=== PATIENT | female | born 1990 | race Caucasian/White ===

== ENCOUNTER → 2021-04-09 10:49 | Outpatient (CLI) | payer OTHER, SELFPAY ==
--- NOTE | ~2021-04-09 | US_ITS ---
EXAMINATION: US OB <= 14 weeks fetus DATE: 04/09/2021 11:41 INDICATION: First trimester dating TECHNIQUE: Real-time pelvic transabdominal and transvaginal ultrasound was performed. COMPARISON: None. FINDINGS: The uterus measures 11.1 x 5.4 x 6 cm. There is an intrauterine gestational sac. A yolk sa c is identified. heart motion is identified measuring 165 beats per minute (bpm) by M-mode Dopp ler. The crown rump length measures 1.6 cm , which correlates with an estimated gestational age of 8 weeks and 0 day(s) (+/-) 5 day(s). The left ovary is not visualized however no left adnexal abnormality is seen. The right ovary measure s measures 6.6 x 8.4 x 6.3 cm. There is a 5.3 x 7.5 x 6 cm cyst of the right ovary. There is no free fluid in the pelvis. IMPRESSION: 1. Live intrauterine with an estimated gestational age of 8 weeks and 0 day(s) (+/-) 5 day( s) and an estimated delivery date of 11/29/2021. 2. Right adnexal cyst measuring up to 7.5 cm. Follow-up ultrasound in 6-12 weeks is recommended. Reviewed, dictated and finalized at location A. IMPRESSION: 1. Live intrauterine with an estimated gestational age of 8 weeks and 0 day(s) (+/-) 5 day(s) and an estimated delivery date of 11/29/2021. 2. Right adnexal cyst measuring up to 7.5 cm. Follow-up ultrasound in 6-12 week s is recommended.
== END ==
PROVIDERS: Visit Provider Obstetrics & Gynecology Gynecology
DX: Z34.91 Encounter for supervision of normal pregnancy, unspecified, first trimester (principal); Z3A.01 Less than 8 weeks gestation of pregnancy; N85.8 Other specified noninflammatory disorders of uterus
CPT/HCPCS: 76801

== ENCOUNTER → 2021-07-04 11:25 | Outpatient (CLI) | payer OTHER, SELFPAY ==
--- NOTE | ~2021-07-04 | US_ITS ---
EXAMINATION: US OB /maternal detail DATE: 07/04/2021 12:04 INDICATION: Right ovarian cyst. anatomy screening during second trimester TECHNIQUE: Multiple obstetric sonographic images performed. COMPARISON: 04/09/2021 FINDINGS: There is a single living fetus in vertex presentation. The placenta is anterior and not low-lying wi th caudal margin 3.6 cm from the internal cervical os. Amniotic fluid volume is subjectively normal. heart rate of 136 beats per minute. The following anatomy was identified as normal: Ventricles, choroid plexus, falx and cava septum pellucidum Cerebellum and cisterna magna Nuchal fold Upper lip Spine Heart Diaphragm Stomach Kidneys Bladder 3 vessel cord and cord insertion Bilateral upper and lower extremities including hands and feet The following biometric data were obtained: BPD: 5.1 cm -> 21 weeks 2 days Head circumference: 19.0 cm -> 21 weeks 2 days Abdominal circumference: 16.8 cm -> 21 weeks 6 days Femur length: 3.6 cm -> 21 weeks 2 days These measurements are concordant. Head circumference to abdominal circumference ratio: 1.13 (normal range 1.06-1.24). Estimated weight: 431 g (+/-) 65 g. or 15 oz. (+/-) 2 oz. IMPRESSION: 1. Single living fetus with vertex presentation with heart rate of 136 bpm. 2. Estimated weight is 97th percentile by Hadlock criteria when 11/19/2021 is used as the estima lluvia date of delivery (NAMAN) based upon earliest ultrasound performed at this institution on 04/01/2021. Please correlate with clinical information or earlier ultrasounds for most accurate NAMAN. 3. Normal survey. Reviewed, dictated and finalized at location A. IMPRESSION: 1. Single living fetus with vertex presentation with heart rate of 136 b pm. 2. Estimated weight is 97th percentile by Hadlock criteria when 11/19/2021 is used as the estimated date of delivery (NAMAN) based upon earliest ultrasound performed at this institution on 04/01/2021. Please correlate with clinical inf ormation or earlier ultrasounds for most accurate NAMAN. 3. Normal survey.
== END ==
PROVIDERS: Visit Provider Obstetrics & Gynecology Gynecology
DX: Z34.92 Encounter for supervision of normal pregnancy, unspecified, second trimester (principal); Z3A.21 21 weeks gestation of pregnancy
CPT/HCPCS: 76805

== ENCOUNTER 2021-10-03 06:32 | Observation (INO) | payer OTHER, SELFPAY ==
[2021-10-03] VITALS (20 sets, daily range): BP systolic 126–137; BP diastolic 73–78; PULSE 57–70; TEMP 36.9–37.3; O2SAT 97–100; BMI 34.2
--- NOTE | ~2021-10-03 | US_ITS ---
EXAMINATION: US renal BI, US_ABDRLQ_US DATE: 10/03/2021 08:55 INDICATION: Right lower quadrant abdominal pain radiating to the back. Right ovarian cyst. TECHNIQUE: Multiple ultrasound grayscale images of the kidneys were obtained. Additional ultrasound g rayscale and color Doppler images were obtained of the right lower quadrant. COMPARISON: None. FINDINGS: The right kidney measures 11.0 x 4.5 x 6.3 cm. The left kidney measures 9.8 x 5.4 x 6.2 cm. The kidne ys demonstrate normal echogenicity. Normal renal arterial resistive indices of 0.65-0.65 on the right and 0.61-0.62 on the left. There is no hydronephrosis in either kidney. No stones identified. The b ladder appears normal but is incompletely distended likely due to the presence of the adjacent gravid uterus. The majority of the right lower quadrant lateral to the gravid uterus is obscured by shadowing bowel gas. Neither the right ovary nor the appendix were able to be visualized. IMPRESSION: 1. Normal kidneys without hydronephrosis. 2. Neither the right ovary nor the appendix are able to be visualized due to primarily to large amoun t of shadowing bowel gas in the right lower quadrant. Reviewed, dictated and finalized at location A. SETTER IMPRESSION: 1. Normal kidneys without hydronephrosis. 2. Neither the right ovary nor the appendix are able to be visualized due to pr imarily to large amount of shadowing bowel gas in the right lower quadrant.
--- NOTE | 2021-10-03 07:06 | OBADM ---
This patient, Dang Eastman, admitted to the OB room OB Post 115 for observation. Patient/family oriented to hospital policies and general routines including ID bracelet, bed and alarms, visiting hours, pain management, procedures, bathroom and other care routines, personal items, smoking policy, room service/diet, and visiting hours. Patient/Family are encouraged to report perceived risks to care and to ask questions if they do not understand what they are told or what they should do.
[2021-10-03 07:54] LABS: Add Urine Microscopic? YES; Appearance Urine Clear (Clear); Bacteria Urine Trace /hpf; Bilirubin Urine Negative (Negative); Blood Urine Negative (Negative); Color Urine Yellow (Yellow); Glucose Urine UA Negative (Negative); Ketones Urine Trace mg/dL (Negative); Leukocyte Esterase Ur Negative LEU/UL (NEGATIVE); Mucus Urine Moderate /lpf; Nitrate Urine Negative (Negative); Protein Urine 1+ mg/dL (Negative); RBC Urine 0-2 /hpf (0-2); Specific Grav Ur 1.025 (1.001-1.035); Squamous Epithelial Cell Urine Many /hpf (Few); Urobilinogen Urine Negative mg/dL (<2.0)
[2021-10-03] MEDS: MEPERIDINE HCL INJ (*CRX) 50 MG/ML AMPUL IM (09:02)
[2021-10-03] MEDS: CYCLOBENZAPRINE HCL 10 MG TABLET PO ×2 (10:28→16:12)
--- NOTE | 2021-10-03 11:59 | P.PNOB_ITS ---
OB - Triage/Final Diagnosis Visit Information Date of evaluation: 10/03/21 Reason for evaluation: other (RLQ pain) Comments/Additional reasons for admission: I have assessed the risk for this patient, Dang Eastman, and determined that she would benefit from observation care. Patient with radiating RLQ pain near groin and around to back. UA ok, U/s ok. Demerol x 1 helped some. Flexeril helped and able to move better. Plan to try [place] and flexeril and position change/ ambulation. If works, will dc home. Evaluation Laboratory results: Laboratory Tests 10/03/21 06:56 Urine Color Yellow Urine Appearance Clear Urine pH 7.0 Ur Specific [place] 1.025 Urine Protein 1+ H Urine Glucose (UA) Negative Urine Ketones Trace Ur Blood (Man) Negative Urine Nitrate Negative Urine Bilirubin Negative Urine Urobilinogen Negative Ur Leukocyte Esterase Negative Urine RBC 0-2 Urine WBC 4-6 H Ur Squamous Epith Cells Many H Urine Bacteria Trace Urine Mucus Moderate H Vital signs: Vital Signs - 24 hr 10/03/21 06:56 10/03/21 07:00 10/03/21 07:01 Temperature 98.5 F Pulse Rate 60 Blood Pressure 137/78 Pulse Oximetry 100 100 10/03/21 07:06 10/03/21 07:11 10/03/21 07:16 Temperature Pulse Rate 60 Blood Pressure 134/76 Pulse Oximetry 100 100 100 10/03/21 07:21 10/03/21 07:26 10/03/21 07:31 Temperature Pulse Rate 60 Blood Pressure 134/75 Pulse Oximetry 100 100 100 10/03/21 07:36 10/03/21 07:41 10/03/21 07:46 Temperature Pulse Rate 58 L Blood Pressure 126/75 Pulse Oximetry 100 100 100 10/03/21 07:51 10/03/21 07:56 10/03/21 08:01 Temperature Pulse Rate 59 L Blood Pressure 130/75 Pulse Oximetry 100 99 100 10/03/21 08:06 10/03/21 08:11 10/03/21 08:16 Temperature Pulse Rate 58 L Blood Pressure 127/73 Pulse Oximetry 100 99 100
[2021-10-03] MEDS: HYDROcodone/acetaminophen (*CRX) 5-325 MG TABLET 1 TAB PO ×2 (12:03→15:43)
[2021-10-03 12:23] LABS: Hematocrit 28.3 % (37.0-47.0); Hemoglobin 8.8 g/dL (12.0-15.0); Mean Corpuscular HGB Conc 31.1 g/dl (32-36); Mean Corpuscular Hemoglobin 21.9 pg (26-34); Mean Corpuscular Volume 70.4 fl (80-100); Mean Platelet Volume 9.9 fl (7.4-10.4); Platelet Count Result 370 k/mm3 (150-375); Red Blood Count 4.02 M/mm3 (4.2-5.4); Red Cell Distribution Width 16.6 % (11.5-14.5); White Blood Count 10.1 K/mm3 (4.5-10.0)
--- NOTE | 2021-10-03 14:28 | PC.NURSE ---
1416- Patient still with complaint of pain 4-5/10 after norco administration. Orders for PT eval, increase norco to every 4 hours. Patient aware and agreeable to plan.
--- NOTE | 2021-10-03 16:25 | PC.NURSE ---
1616- PT has seen patient. Patient requesting to go home at this time. Scripts have been sent to pharmacy.
== END 2021-10-03 17:00 | disposition home or self-care (01) ==
PROVIDERS: Admitting Provider Obstetrics & Gynecology Gynecology; Visit Provider Obstetrics & Gynecology Gynecology
DX: O26.893 Other specified pregnancy related conditions, third trimester (principal); R10.31 Right lower quadrant pain; Z3A.31 31 weeks gestation of pregnancy
CPT/HCPCS: 36415; 76705; 76775; 81001; 85027; 87077; 87086; 87088; 96372; 97161; A9270; G0378; G0379; J2175

== ENCOUNTER 2021-10-08 11:39 | Inpatient (IN) | payer OTHER, SELFPAY ==
[2021-10-08] VITALS (38 sets, daily range): BP systolic 118–143; BP diastolic 67–91; PULSE 67–132; RESP 16–20; TEMP 36.4–37.2; O2SAT 92–100; BMI 34.5
--- NOTE | ~2021-10-08 | US_ITS ---
EXAMINATION: US OB follow up w BPP, US umbilical doppler EXAM DATE: 10/08/2021 12:49 INDICATION: DFM; JASVIR,BPP Bedside Please DFM, Decels. 3rd trimester. TECHNIQUE: Pelvic obstetrical transabdominal sonogram was performed by a technologist. There are mu ltiple grayscale and Doppler images available for interpretation. Correlation is made to ultrasound 1 . FINDINGS: There is a single fetus identified in vertex presentation with a heart rate of 150 beats pe r minute. The placenta is located in the anterior position. There is no sonographic evidence of retr oplacental hemorrhage identified. The amniotic fluid index is 12.4 centimeters, which is normal. BIOMETRIC DATA: Biparietal diameter (BPD): 8.6 cm --------------> 34 weeks 6 days. Head circumference (HC): 29.5 cm ---------------> 32 weeks 4 days. Abdominal circumference (AC): 28.9 cm ---------> 32 weeks 6 days. Femur length (FL): 6.4 cm ------------------------> 33 weeks 1 day. These measurements are concordant. HC/AC ratio is 1.02 (The 5th -- 95th percentile range is 0.95-1.11. Estimated weight is 2111 g +/- 317 g. This is the 56th percentile when the currently reported clinical gestation age 32 weeks 4 days, clinical estimated date of delivery (NAMAN-OPE) 11/29 is used. F etal estimated gestational age based on measurements from this exam is 33 weeks 3 days, with an estim ated date of delivery (NAMAN-AUA) 11/23. BIOPHYSICAL PROFILE (performed by the technologist) breathing (30 sec sustained breathing in 30 minutes): 0 out of 2 movement (3 gross body movements in 30 minutes): 0 out of 2 tone (one episode of umawgmy-mttcbbejm-miwonvn limb movement): 0 out of 2 Amniotic fluid pocket (2 cm): 2 out of 2 Total score: 2 out of 8 UMBILICAL ARTERY DOPPLER Systolic/diastolic ratios obtained as follows: Near baby: 2.2, 2.5 Mid aspect: 2.3 Near Placenta: 2.2, 2.5 (The 5th -- 95th percentile range is 2.0 -- 3.8). IMPRESSION: 1. Single fetus with heart rate of 150 bpm, weight of 2111 which is 56th percentile using the gestational age 32 weeks 4 days. 2. Abnormal BPS 2 out of 8. 3. Normal JASVIR 12.4 cm. 4. Normal umbilical artery Doppler ratios. Notation was made that this was done portably and ordering physician was present during exam, aware o f the biophysical profile score. Reviewed, dictated and finalized at location A. SUPPORT REPRESENTATIVE IMPRESSION: 1. Single fetus with heart rate of 150 bpm, weight of 2111 which is 56th percentile using the gestational age 32 weeks 4 days. 2. Abnormal BPS 2 out of 8. 3. Normal JASVIR 12.4 cm. 4. Normal umbilical artery Doppler ratios. Notation was made that this was done portably and ordering physician was presen t during exam, aware of the biophysical profile score.
--- NOTE | 2021-10-08 11:39 | LDADM ---
This patient, Dang Eastman, was admitted to Labor/Delivery/Recovery 112 on 10/08/21 at 11:39. Plans for labor, pain management and were discussed with patient. Patient/family oriented to hospital policies and general routines including ID bracelet, bed and alarms, visiting hours, pain management, procedures, bathroom and other care routines, personal items, smoking policy, room service/diet and guest tray routines, security routines, and visiting hours. Patient/Family are encouraged to report perceived risks to care and to ask questions if they do not understand what they are told or what they should do. See OBIX for further documentation.
[2021-10-08] MEDS: TERBUTALINE SULFATE 1 MG/ML VIAL 0.25 MG SUB-Q (12:18)
--- NOTE | 2021-10-08 12:39 | WPDANESEPPF ---
Anes - Initial Pre Proc Eval Date/Time: 10/08/21 12:39 Surgeon: Lydia Knox MD Pre Op Diagnosis: dfm Patient Data Age: 31 Gender: F Height: Weight: Last Vital Signs Pulse 93 10/08/21 11:52 BP 132/80 10/08/21 11:52 Allergies Allergy/AdvReac Type Severity Reaction Status Date / Time No Known Allergies Allergy Unknown Unverified 03/24/18 12:50 Home Medications Medication Instructions Recorded Confirmed Type Classic 1 tablet PO DAILY 10/03/21 10/03/21 History cyclobenzaprine 10 mg PO Q6H PRN #30 tablet 10/03/21 Rx ergocalciferol (vitamin D2) 1,250 mcg PO WEEKLY 10/03/21 10/03/21 History hydrocodone-acetaminophen 1 tablet PO Q6H PRN #20 tablet 10/03/21 Rx Patient hx anesthesia problems: none Family hx anesthesia problems: none Results Review: All pre-operative results and documents have been reviewed as part of the pre-operative evaluation. Anes - Eval Final PreProcedure Day of Procedure 10/08/21 12:39 Patient weight: overweight Heart: regular rate and rhythm Lungs: clear to auscultation Airway: Mallampati scale class II Neurological: alert and oriented ASA classification: II Emergent: yes Anesthetic plan: proceed Anesthesia type and monitoring: general ETT and standard monitoring Results Review: All pre-operative results and documents have been reviewed as part of the pre-operative evaluation. Informed Consent: The patient's anesthetic plan and its attendant risks and benefits were discussed with the patient/family/POA. Questions were solicited and answers provided to the satisfaction of the patient/family/POA.
[2021-10-08] MEDS: ceFAZolin 2 GM/D5W 50 ML 2 GM/50 ML BAG IVPB (12:43)
[2021-10-08 12:49] LABS: Basophils Percent Auto 0.2 % (0.2-1.2); Eosinophils Percent Auto 0.2 % (0-4.4); Hematocrit 29.8 % (37.0-47.0); Hemoglobin 9.1 g/dL (12.0-15.0); Immature Granulocyte Absolute 0.02 K/mm3 (0.00-0.031); Immature Granulocyte Percent A 0.2 % (0-0.5); Lymphocytes Absolute Auto 2.37 K/mm3 (0.9-3.2); Lymphocytes Percent Auto 22.3 % (18.3-44.2); Mean Corpuscular HGB Conc 30.5 g/dl (32-36); Mean Corpuscular Hemoglobin 21.5 pg (26-34); Mean Corpuscular Volume 70.4 fl (80-100); Mean Platelet Volume 11.2 fl (7.4-10.4); Monocytes Absolute Auto 0.8 K/mm3 (0.1-0.6); Monocytes Percent Auto 7.3 % (2.6-8.5); Neutrophils Absolute Auto 7.4 K/mm3 (1.3-6.7); Neutrophils Percent Auto 69.8 % (45.5-73.1); Platelet Count Result 354 k/mm3 (150-375); Red Blood Count 4.23 M/mm3 (4.2-5.4); White Blood Count 10.6 K/mm3 (4.5-10.0)
--- NOTE | 2021-10-08 13:18 | P.OP_ITS ---
Procedure Note - Detailed Date of Procedure 10/08/21 Pre-op Diagnosis Intrauterine at 32 and 4 7th weeks with decreased movement; nonreassuring heart tones category 3 tracing Post-op Diagnosis same Procedure Performed Emergent low-transverse section Surgeon Lydia Knox MD Anesthesia general Findings Male normal-appearing tubes ovaries and uterus Description of Procedure The patient was taken to the operating room and placed under anesthesia in the dorsal supine position with a leftward tilt. Once the patient was intubated a Pfannenstiel skin incision was made with a scalpel and carried down to the underlying layer of fascia. The fascia was nicked in the midline and extended laterally using Angela scissors. [facility] was used to tent the fascia which was dissected off using sharp dissection. The peritoneum is tented and entered with Metzenbaum scissors. The incision was extended with blunt traction. Bladder blade is placed and the vesicouterine peritoneum tented and entered with Metzenbaum. The incision is extended laterally and the bladder flap created digitally. The bladder blade is replaced. The lower uterine segment was incised in a transverse fashion with the scalpel. Incision was extended laterally using blunt traction. Membranes were ruptured with clear fluid noted vertex is delivered through the incision and the infant's fully delivered with the nutrition services assistant applying fundal pressure. Cord was clamped and cut and the infant handed to the waiting nursery nurse and concrete batch plant operator. The placenta was removed using manual traction. The uterus is cleared of all clots and debris an d exteriorized. The uterine incision was closed using 0 Monocryl in a running locked fashion with the same suture used to imbricate and obtain hemostasis. The cul-de-sac was irrigated and the uterus returned to the abdomen. Gutters were irrigated. Incision is again inspected noted to be hemostatic. The fascia is closed using 0 Vicryl in a running fashion. Subcutaneous tissues are irrigated made hemostatic using Bovie cautery. Skin is closed using 4-0 Vicryl in a subcuticular fashion. Dermaflex was placed over the incision. Sponge instrument needle counts are correct per the OR staff. Estimated Blood Loss 435 Drains Yes (Fox catheter) Packing No Pathology yes (Placenta) Complications No immediate complications Condition stable Disposition floor
[2021-10-08] MEDS: MORPHINE SULFATE INJ (*CRX) 10 MG/ML AMP 3 MG IV PUSH (13:40)
[2021-10-08] MEDS: OXYTOCIN 30 UNITS/NS 500 ML 30 UNITS/500 ML BAG 125 UNITS IV CONT (14:14)
[2021-10-08] MEDS: FENTANYL 600MCG/NS30MLPCA(*CRX 600 MCG/30 ML PCA.VIAL IV CONT (15:13)
--- NOTE | 2021-10-08 15:50 | SUR.PHASEI ---
Recovery completed. Pt comfy with air and water filler in use. Sitting up in stretcher having apple juice after tolerating ice chips well. PP RN not available to take report at this time. Pt denies any other needs. Call light within reach.
--- NOTE | 2021-10-08 16:40 | SUR.PHASEI ---
Report called to Judit Soto RN. Pt going to room 285 for pp care.
--- NOTE | 2021-10-08 17:15 | SUR.PHASEI ---
PP RN states ok for pt to come up now.
--- NOTE | 2021-10-08 17:20 | SUR.PHASEI ---
Menu provided, pt going to order soft diet for dinner than moving up to pp floor.
--- NOTE | 2021-10-08 17:34 | SUR.PHASEI ---
Pt moved to pp room via stretcher. Belongings and chart with pt. was shipped out to [facility].
--- NOTE | 2021-10-08 17:36 | PC.NURSE ---
Patient transferred to post room #285 per stretcher. Support person present. Oriented to unit, room, information board, rooming in, admission packet and security measures. Patient verbalizes understanding.
[2021-10-08] MEDS: LACTATED RINGERS 1,000 ML 100 ML IV CONT (18:29)
[2021-10-09 03:30] VITALS: BP 132/66; PULSE 69; RESP 18; TEMP 36.6; O2SAT 99
[2021-10-09] MEDS: IBUPROFEN 600 MG TABLET PO ×3 (04:20→18:05)
[2021-10-09 05:35] LABS: Basophils Percent Auto 0.2 % (0.2-1.2); Hematocrit 25.6 % (37.0-47.0); Hemoglobin 7.9 g/dL (12.0-15.0); Immature Granulocyte Absolute 0.04 K/mm3 (0.00-0.031); Immature Granulocyte Percent A 0.4 % (0-0.5); Lymphocytes Absolute Auto 3.02 K/mm3 (0.9-3.2); Mean Corpuscular HGB Conc 30.9 g/dl (32-36); Mean Corpuscular Hemoglobin 21.4 pg (26-34); Mean Corpuscular Volume 69.2 fl (80-100); Mean Platelet Volume 10.4 fl (7.4-10.4); Monocytes Percent Auto 8.8 % (2.6-8.5); Neutrophils Absolute Auto 6.8 K/mm3 (1.3-6.7); Neutrophils Percent Auto 62.6 % (45.5-73.1); Platelet Count Result 375 k/mm3 (150-375); Red Cell Distribution Width 16.5 % (11.5-14.5); White Blood Count 10.8 K/mm3 (4.5-10.0)
[2021-10-09] MEDS: FENTANYL 600MCG/NS30MLPCA(*CRX 600 MCG/30 ML PCA.VIAL IV CONT (05:43)
[2021-10-09 07:12] LABS: Rapid Plasma Reagin Non-Reactive (NonReactive)
--- NOTE | 2021-10-09 07:42 | PM.OBPNVD ---
OB - PN: Subj Subjective Date/time seen: 10/09/21 07:42 Patient comments: no complaints and pain well controlled baby status: NICU (doing well) OB - PN: Obj Data Labs CBC & Chem 7: 10/09/21 04:23 Labs: Laboratory Results - last 24 hr 10/08/21 10/08/21 10/08/21 12:35 12:35 14:21 WBC 10.6 H RBC 4.23 Hgb 9.1 L Hct 29.8 L MCV 70.4 L MCH 21.5 L MCHC 30.5 L RDW 17.0 H Plt Count 354 MPV 11.2 H Immature Gran % (Auto) 0.2 Neut % (Auto) 69.8 Lymph % (Auto) 22.3 [place] % (Auto) 7.3 Eos % (Auto) 0.2 Baso % (Auto) 0.2 Lymph # (Auto) 2.37 [place] # (Auto) 0.8 H Eos # (Auto) 0.0 Baso # (Auto) 0.0 Abs Immat Gran (auto) 0.02 Absolute Neuts (auto) 7.4 H Absolute Nucleated RBC 0.0 Nucleated RBC % 0.0 RPR Non-reactive Blood Type B Positive Antibody Screen Negative 10/09/21 04:23 WBC 10.8 H RBC 3.70 L Hgb 7.9 L Hct 25.6 L MCV 69.2 L MCH 21.4 L MCHC 30.9 L RDW 16.5 H Plt Count 375 MPV 10.4 Immature Gran % (Auto) 0.4 Neut % (Auto) 62.6 Lymph % (Auto) 28.0 [place] % (Auto) 8.8 H Eos % (Auto) 0.0 Baso % (Auto) 0.2 Lymph # (Auto) 3.02 [place] # (Auto) 1.0 H Eos # (Auto) 0.0 Baso # (Auto) 0.0 Abs Immat Gran (auto) 0.04 H Absolute Neuts (auto) 6.8 H Absolute Nucleated RBC 0.0 Nucleated RBC % 0.0 RPR Blood Type Antibody Screen Imaging Radiologist's impression: Impressions Doppler Study 10/08/21 12:51 IMPRESSION: 1. Single fetus with heart rate of 150 bpm, weight of 2111 which is 56th percentile using the gestational age 32 weeks 4 days. 2. Abnormal BPS 2 out of 8. 3. Normal JASVIR 12.4 cm. 4. Normal umbilical artery Doppler ratios. Notation was made that this was done portably and ordering physician was present during exam, aware of the biophysical profile score. Obstetrical Follow-Up 10/08/21 12:51 IMPRESSION: 1. Single fetus with heart rate of 150 bpm, weight of 2111 which is 56th percentile using the gestational age 32 weeks 4 days. 2. Abnormal BPS 2 out of 8. 3. Normal JASVIR 12.4 cm. 4. Normal umbilical artery Doppler ratios. Notation was made that this was done portably and ordering physician was present during exam, aware of the biophysical profile score. OB - PN A/P Plan day: 1 Plan: routine care and other (pass to [facility]) Time Spent With Patient Time: Total time spent is greater than 50% in coordination of care (as documented) at patient's floor/unit and/or counseling patient: Exam Narrative: inc c/d/i : Bimanual exam- vagina & uterus: other (Uterus firm, nt @U)
[2021-10-09 08:00] VITALS: BP 115/76; PULSE 68; RESP 18; TEMP 36.6
[2021-10-09] MEDS: LANOLIN (LANSINOH) 7.5 GM CREAM 1 APPLIC TOPICAL (09:03)
[2021-10-09] MEDS: POLYSACCHARIDE IRON COMPLEX 150 MG CAPSULE PO ×2 (09:03→18:04)
[2021-10-09] MEDS: DOCUSATE SODIUM 100 MG CAPSULE PO ×2 (09:03→18:04)
[2021-10-09] MEDS: MULTIVIT/MIN/PREN/FOL AC/IRON TABLET 1 TAB PO (09:03)
[2021-10-09] MEDS: SIMETHICONE 80 MG TAB.CHEW PO ×2 (09:03→18:04)
--- NOTE | 2021-10-09 09:32 | WPDANESPN ---
Anes - Prog Note Post-Op Date/Time: 10/09/21 09:32 Cardiovascular status: normal Respiratory status: normal Airway patency: baseline Mental status: baseline Post-Op hydration status: normal Vital Signs: Last Vital Signs Temp 36.6 C 10/09/21 08:00 Pulse 68 10/09/21 08:00 Resp 18 10/09/21 08:00 BP 115/76 10/09/21 08:00 Pulse Ox 99 10/09/21 03:30 Pain Score (VAS): 3 I/O: Intake & Output 10/08/21 10/09/21 10/09/21 23:59 07:59 15:59 Intake Total 135 446 9385 Output Total 700 1650 400 Balance -400 -1320 600 Laboratory Tests 10/09/21 04:23 10/08/21 10/08/21 10/08/21 12:35 12:35 14:21 WBC 10.6 H RBC 4.23 Hgb 9.1 L Hct 29.8 L MCV 70.4 L MCH 21.5 L MCHC 30.5 L RDW 17.0 H Plt Count 354 MPV 11.2 H Immature Gran % (Auto) 0.2 Neut % (Auto) 69.8 Lymph % (Auto) 22.3 [place] % (Auto) 7.3 Eos % (Auto) 0.2 Baso % (Auto) 0.2 Lymph # (Auto) 2.37 [place] # (Auto) 0.8 H Eos # (Auto) 0.0 Baso # (Auto) 0.0 Abs Immat Gran (auto) 0.02 Absolute Neuts (auto) 7.4 H Absolute Nucleated RBC 0.0 Nucleated RBC % 0.0 RPR Non-reactive Blood Type B Positive Antibody Screen Negative 10/09/21 04:23 WBC 10.8 H RBC 3.70 L Hgb 7.9 L Hct 25.6 L MCV 69.2 L MCH 21.4 L MCHC 30.9 L RDW 16.5 H Plt Count 375 MPV 10.4 Immature Gran % (Auto) 0.4 Neut % (Auto) 62.6 Lymph % (Auto) 28.0 [place] % (Auto) 8.8 H Eos % (Auto) 0.0 Baso % (Auto) 0.2 Lymph # (Auto) 3.02 [place] # (Auto) 1.0 H Eos # (Auto) 0.0 Baso # (Auto) 0.0 Abs Immat Gran (auto) 0.04 H Absolute Neuts (auto) 6.8 H Absolute Nucleated RBC 0.0 Nucleated RBC % 0.0 RPR Blood Type Antibody Screen Post-procedural complaints: none Patient Feedback: Patient satisfied with anesthetic care.
--- NOTE | 2021-10-09 11:00 | PC.NURSE ---
Pt. on leave with 6 hr. pass to [facility] to see . Mother will be taking and bringing pt. back. Consent signed.
--- NOTE | 2021-10-09 13:55 | PC.NURSE ---
0902 - Breast pump provided prior to RN shift due to transferred to [facility]. Reviewed information regarding pump care, hand washing, nipple care and pumping 8 times in 24 hours (1-2 at night) for 10-15 minutes. Discussed she may want to pump after feedings or between feedings. If after feeding, rest for 5-10 minutes. Get something to eat/drink, use the restroom, then pump. Collection frequency and storage of breast milk per mom and baby guide. Encouraged mom to place skin to skin, breast massage and use hand expression and/or a breast pump in a relaxing atmosphere. Reviewed recording pumping schedule on the feeding sheet. Referred to the visual handout along with the mom and baby guide as a resource and when to call a provider. Reported to primary RN as she is in the room also.
--- NOTE | 2021-10-09 17:00 | PC.NURSE ---
Pt. returned from [facility] to [facility].
[2021-10-09] MEDS: HYDROcodone/acetaminophen (*CRX) 5-325 MG TABLET 1 TAB PO (18:04)
[2021-10-09 18:10] VITALS: BP 126/74; PULSE 90; RESP 18; TEMP 36.6
--- NOTE | 2021-10-10 07:26 | PM.OBPNVD ---
OB - PN: Subj Subjective Date/time seen: 10/10/21 07:26 Patient comments: no complaints and pain well controlled baby status: doing well OB - PN: Obj Data Labs CBC & Chem 7: 10/09/21 04:23 OB - PN A/P Plan day: 2 Plan: routine care and discharge home Comments: plans condoms until IUD Time Spent With Patient Time: Total time spent is greater than 50% in coordination of care (as documented) at patient's floor/unit and/or counseling patient: Exam Narrative: inc c/d/i : Bimanual exam- vagina & uterus: other (Uterus firm, nt @U)
--- NOTE | 2021-10-10 07:27 | PM.OBDSVD ---
DS: Admitting Diagnosis Discharge Date 10/10/21 Admitting Diagnosis decreased movement with category III tracing in office DS: Discharge Diagnosis Discharge Diagnosis (1) Non-reassuring status: Status: Acute (2) delivery delivered: Code(s): O82 - Encounter for delivery without indication Status: Acute (3) 32 weeks gestation of : Code(s): Z3A.32 - 32 weeks gestation of Status: Acute OB - DS: Summary OB Procedures : NST and Ultrasound OB Procedures Intrapartum: low cervical, transverse OB Procedures: : None Peripartum Data Infant Delivery Method: Section Procedures: Procedures Operation Date: 10/08/21 13:00 Actual Procedure Side Surgeon p Section Lydia Knox MD complications: none Status at Discharge Functional status at discharge: independent ambulation Overall status at discharge: patient is progressing back to baseline Time Spent with Patient Time attestation: Total time spent providing and/or coordinating discharge services: DS: Data Data Completed and Pending Pending studies at discharge: Pending at discharge 10/08/21 12:57 Surgical [PTH] Routine Discharge Plan Discharge Attending physician on discharge: Lydia Knox Discharging Clinician: Lydia Knox Anticipated Discharge Date/Time: 10/10/21 07:29 Patient Disposition: Home, Self-Care Activity: may shower, may drive after 2 weeks and pelvic rest Diet: regular Wound Care Instructions: incision open to air Patient Instructions: Antibiotic Form Stand Alone Forms: General Discharge Information Follow-up/Referrals: Lydia Knox MD [Physician] - 1 Week Discharge Medications: Continued ergocalciferol (vitamin D2) 1,250 mcg (50,000 unit) capsule 1,250 mcg PO WEEKLY RF: 0 Classic 28 mg iron- 800 mcg Tablet 1 tablet PO DAILY RF: 0 cyclobenzaprine 10 mg Tablet 10 mg PO Q6H PRN (Reason: Muscle Spasm) Qty: 30 RF: 0 hydrocodone-acetaminophen 5-325 mg Tablet 1 tablet PO Q6H PRN (Reason: Pain Rated 4-6) Qty: 20 RF: 0 Date of admission: 10/08/21 11:39 Primary Care Provider: PHYSICIAN,RESIDENTIAL DOOR INSTALLER Admitting Provider: Lydia Knox Attending physician on admission: Lydia Knox Condition: Stable
[2021-10-10] MEDS: DOCUSATE SODIUM 100 MG CAPSULE PO (07:33)
[2021-10-10] MEDS: MULTIVIT/MIN/PREN/FOL AC/IRON TABLET 1 TAB PO (07:33)
[2021-10-10] MEDS: POLYSACCHARIDE IRON COMPLEX 150 MG CAPSULE PO (07:33)
[2021-10-10] MEDS: IBUPROFEN 600 MG TABLET PO (07:34)
[2021-10-10] MEDS: HYDROcodone/acetaminophen (*CRX) 5-325 MG TABLET 1 TAB PO (07:34)
[2021-10-10 07:45] VITALS: BP 110/73; PULSE 98; RESP 20; TEMP 37.2
[2021-10-10] MEDS: MEASLES,MUMPS,RUBELLA VACCINE 0.5 ML VIAL SUB-Q (07:59)
--- NOTE | 2021-10-10 11:23 | PC.NURSE ---
0840 - Reintroductions were made and mother led the conversation with regards to her experience and plan for feeding her baby. Mother plans to continue to pump and supplement with human milk once infant is able to eat. is at [facility] and mom states they will possibly attempt oral feedings today. Mom plans to breastfeed her at home with mom hopeful that it will be in two weeks. Reviewed production of human milk, transition of milk, signs of adequate intake and engorgement prevention/relief and when to call the care provider using the mom and baby guide. Reviewed medications mother is taking with information provided by [facility], community resources and outpatient services as listed in the mom and baby guide/[facility] website. Reinforced effective latching. Mom states there is a sap consultant at [facility] that she is working with. Mother voiced understanding of information shared. Reported to primary RN.
[2021-10-11 07:44] VITALS: BP 131/84; PULSE 97; RESP 16; TEMP 37.3; O2SAT 100
--- NOTE | 2021-10-20 08:51 | PM.IMHP ---
H&P: HPI History of Present Illness Date/Time: October 08, 2021 The patient is a 31-year-old 3 para 2 admitted at 32 weeks from the office. Patient was seen at the [address] [place] [address] office site for routine visit. She reported 2 days of decreased movement. Was sent for nonstress test at the [place] office. NST was not reactive had minimal variability and decelerations. She was sent immediately to labor and delivery. Biophysical profile performed at the bedside revealed a 2/10. While performing the biophysical profile measurements and JASVIR were taken which were normal and Dopplers were normal. It was immediately recommended to patient to proceed with emergent low transverse section. The patient voiced understanding and agreed to proceed. Chief Complaint: Decreased movement with category is 3 tracing in the office PMFSH Past Medical History Medical History (Updated 10/20/21 @ 08:54 by Lydia Knox MD) (normal spontaneous vaginal delivery) X2 Polycystic ovarian syndrome Family History Family History (Updated 10/08/21 @ 15:30 by Fanny Esteban RN) Father Acute myocardial infarction Mother Diabetes mellitus Social History Social History Smoking status: Never smoker Spiritual care concerns: No Meds Home Medications and Allergies Home Medications Medication Instructions Recorded Confirmed Type Classic 1 tablet PO DAILY 10/03/21 10/08/21 History cyclobenzaprine 10 mg PO Q6H PRN #30 tablet 10/03/21 10/08/21 Rx ergocalciferol (vitamin D2) 1,250 mcg PO WEEKLY 10/03/21 10/08/21 History hydrocodone-acetaminophen 1 tablet PO Q6H PRN #20 tablet 10/03/21 10/08/21 Rx Allergies Allergy/AdvReac Type Severity Reaction Status Date / Time No Known Allergies Allergy Unknown Unverified 03/24/18 12:50 Exam Const: General: healthy appearing and anxious Nutritional Appearance: average body habitus GI: GI Palp: No abdominal tenderness, Yes Soft to palpation and Yes Other GI palpation findings present (Gravid) Auscultation: other ( heart tones as per history of present) Assessment and Plan Assessment and plan (1) 32 weeks gestation of : Code(s): Z3A.32 - 32 weeks gestation of Status: Acute (2) Non-reassuring status: Status: Acute Assessment and Plan: Biophysical of 10/23. It was recommended to proceed with primary under general anesthesia. The patient voiced understanding and agreed to proceed.
== END 2021-10-10 10:57 | disposition home or self-care (01) | DRG 788 ==
LOC: ANHOBPP 12:21 → ANHLDR 13:05 → ANHOB2 18:48
PROVIDERS: Admitting Provider Obstetrics & Gynecology Gynecology; Visit Provider Obstetrics & Gynecology Gynecology
PROC: 10D00Z1 Extraction of Products of Conception, Low, Open Approach (ICD-10-PCS; CPT 59514; principal; 2021-10-08 13:00)
DX: O36.8130 Decreased fetal movements, third trimester, not applicable or unspecified (principal); O76 Abnormality in fetal heart rate and rhythm complicating labor and delivery; Z3A.32 32 weeks gestation of pregnancy; Z37.0 Single live birth
CPT/HCPCS: 36415; 76816; 76819; 76820; 85025; 86592; 86850; 86900; 86901; 88307; 90710; A9270; J0131; J0330; J0690; J1100; J1885; J2250; J2270; J2405; J2590; J2704; J3010; J3105; J7120